=== PATIENT | female | born 1970 | race Caucasian/White ===

== ENCOUNTER 2018-02-19 12:53 | Emergency (ER) | payer MEDICAID, OTHER ==
[2018-02-19 13:04] VITALS: BP 114/69
[2018-02-19] MEDS ORDERED: IBUPROFEN 200 MG TAB PO ONE (13:08)
--- NOTE | 2018-02-19 13:15 | EDPHY ---
H & P Stated Complaint: Shelving unit hit pt. into bridge of nose this am(530) salas finley -jaime,alejandro Time Seen by Provider: 02/19/18 13:10 HPI/ROS: CHIEF COMPLAINT: Nose injury HISTORY OF PRESENT ILLNESS: Patient is a 47-year-old female who was trying to pull a drawer out of the catering rack. It was stuck and when it came loose and hit her in the nose. This was about 530 this morning. She has had mild pain and swelling of her nose ever since. Mild headache as well. She did not hit her head. She did not lose consciousness. She does not think she got a concussion. Her nose did not bleed. Severity: Moderate Modifying factors: None REVIEW OF SYSTEMS: Constitutional: denies: chills, fever, recent illness, recent injury EENTM: See above Respiratory: denies: cough, shortness of breath Cardiac: denies: chest pain, irregular heart rate, lightheadedness, palpitations Gastrointestinal/Abdominal: denies: abdominal pain, diarrhea, nausea, vomiting, blood streaked stools Genitourinary: denies: dysuria, frequency, hematuria, pain Musculoskeletal: denies: joint pain, muscle pain Skin: denies: lesions, rash, jaundice, bruising Neurological: denies: headache, numbness, paresthesia, tingling, dizziness, weakness Hematologic/Lymphatic: denies: blood clots, easy bleeding, easy bruising Immunologic/allergic: denies: HIV/AIDS, transplant 10 systems reviewed and negative except as noted EXAM: GENERAL: Well-appearing, well-nourished and in no acute distress. HEAD: Atraumatic, normocephalic. EYES: Pupils equal round and reactive to light, extraocular movements intact, sclera anicteric, conjunctiva are normal. ENT: Mild bruising to the bridge of her nose. No deformity. No crepitus. No bleeding. TMs normal, nares patent, oropharynx clear without exudates. Moist mucous membranes. NECK: Normal range of motion, supple without lymphadenopathy or JVD. LUNGS: Breath sounds clear to auscultation bilaterally and equal. No wheezes rales or rhonchi. HEART: Regular rate and rhythm without murmurs, rubs or gallops. ABDOMEN: Soft, nontender, normoactive bowel sounds. No guarding, no rebound. No masses appreciated. BACK: No CVA tenderness, no spinal tenderness, step-offs or deformities EXTREMITIES: Normal range of motion, no pitting or edema. No clubbing or cyanosis. NEUROLOGICAL: Cranial nerves II through XII grossly intact. Normal speech, normal gait. 5/5 strength, normal movement in all extremities, normal sensation , normal reflexes PSYCH: Normal mood, normal affect. SKIN: Warm, dry, normal turgor, no visible rashes or lesions. Source: Patient Exam Limitations: No limitations - Personal History LMP (Females 10-55): Post Menopausal Current Tetanus Diphtheria and Acellular Pertussis (TDAP): Yes Tetanus Vaccine Date: 2009 - Medical/Surgical History Hx Asthma: No Hx Chronic Respiratory Disease: No Hx Diabetes: No Hx Cardiac Disease: No Hx Renal Disease: No Hx Cirrhosis: No Hx Alcoholism: No Hx HIV/AIDS: No Hx Splenectomy or Spleen Trauma: No Other PMH: Med hx-none. [id number] breast -lumpectomy - Family History Significant Family History: No pertinent family hx - Social History Smoking Status: Never smoked Alcohol Use: Sober Drug Use: None Constitutional: Initial Vital Signs Temperature (C) 36.6 C 02/19/18 12:58 Heart Rate 70 02/19/18 12:58 Respiratory Rate 16 02/19/18 12:58 Blood Pressure 114/69 02/19/18 12:58 O2 Sat (%) 96 02/19/18 12:58 O2 Delivery Mode Room Air Allergies/Adverse Reactions: No Known Allergies Allergy (Verified 02/19/18 12:58) Home Medications: Medication Instructions Recorded NK [No Known Home Meds] 02/19/18 Medical Decision Making ED Course/Re-evaluation: 1:15 p.m. the patient's nose has slight swelling. No crepitus or deformity to the bony aspect. I do not think that it is broken. She has not had any epistaxis. We discussed continued ice and treat with ibuprofen. I will give her ENT to follow up with if her nose appears deformed when some of the swelling resolves. She does have a mild headache but does not think that she has a concussion. She is mentating normally. We agreed not to perform imaging. Differential Diagnosis: Partial list of the Differential diagnosis considered include but were not limited to; nasal bone contusion, fracture, or concussion and although unlikely based on the history and physical exam, I also considered neck injury, intracranial injury. - Data Points Medications Given: Discontinued Medications Ibuprofen (Motrin) 400 mg PO EDNOW ONE Stop: 02/19/18 13:09 Last Admin: 02/19/18 13:16 Dose: 400 mg Departure - Departure Disposition: Home, Routine, Self-Care Clinical Impression: Contusion of nose Qualifiers: Encounter type: initial encounter Qualified Code(s): S00.33XA - Contusion of nose, initial encounter Condition: Fair Instructions: Nasal Contusion (ED) Additional Instructions: Your nose does not appear broken. If it looks crooked or unequal when the swelling improves, follow-up with ENT as discussed. Referrals: NONE *PRIMARY CARE P,. [Primary Care Provider] - As per Instructions Kelsey Shipley PA [Physician [employer] Operator] - As per Instructions Stand Alone Forms: Work Limited Duty, Work Comp Follow Up
== END 2018-02-19 13:20 | disposition home or self-care (01) ==
LOC: CED 12:53
DX: S00.33XA Contusion of nose, initial encounter (principal); W20.8XXA Other cause of strike by thrown, projected or falling object, initial encounter; Y92.9 Unspecified place or not applicable